=== PATIENT | male | born 1955 | race Caucasian/White ===

== ENCOUNTER 2019-09-21 07:49 | Outpatient (CLI) | payer OTHER, SELFPAY ==
--- NOTE | ~2019-09-21 | US_ITS ---
EXAMINATION: US aorta [facility] scr[facility] DATE: 09/21/2019 08:33 INDICATION: Family aortic aneurysm screening TECHNIQUE: Grayscale, color Doppler, and pulsed Doppler images of the aorta and common iliac arteries were obtained. COMPARISON: None. FINDINGS: The proximal aorta is 2.0 cm. The mid aorta measures 1.8 cm. The distal aorta measures 1.6 cm. The ri ght common iliac artery measures 1.0 cm. The left common iliac artery measures 1.2 cm. The visualized mid inferior vena cava is normal. IMPRESSION: 1. Normal caliber abdominal aorta. Reviewed, dictated and finalized at location A.
== END 2019-09-21 07:50 | disposition home or self-care (01) ==
LOC: ANHIMG 07:53
PROVIDERS: PCP Family Medicine; Visit Provider Family Medicine
DX: Z13.6 Encounter for screening for cardiovascular disorders (principal); Z87.891 Personal history of nicotine dependence
CPT/HCPCS: 76706

== ENCOUNTER 2023-01-02 14:14 | Emergency (ER) | payer OTHER, SELFPAY ==
--- NOTE | ~2023-01-02 | XR_ITS ---
EXAMINATION: XR foot RT min 3V DATE: 01/02/2023 14:57 INDICATION: Right toe pain. Third toe swelling. TECHNIQUE: 4 views of right foot were obtained. COMPARISON: Right foot radiograph 09/20/2005 FINDINGS: There is internal fixation of second metatarsal with dorsal plate and screws. There is inte rnal fixation of third metatarsal with dorsal plate and screws. Bone alignment is normal. There is a transverse fracture of head of fifth proximal phalanx with callus formation. There is mild osteoarthr itis of first and third metatarsophalangeal joints and some of the interphalangeal joints. There is m oderate osteoarthritis of third distal interphalangeal joint. IMPRESSION: 1. Healing transverse fracture of head of fifth proximal phalanx. 2. Polyarticular osteoarthritis. Reviewed, dictated and finalized at location A.
[2023-01-02 14:15] VITALS: BP 143/75; PULSE 84; RESP 18; TEMP 37.2; O2SAT 97
--- NOTE | 2023-01-02 15:59 | ED.EXTPRO ---
HPI - Extremity Problem General Chief complaint: Extremity Problem,Nontraumatic Stated complaint: swollen toe Time Seen by Provider: 01/02/23 14:32 History of Present Illness HPI Narrative: 67-year-old male presents to the emergency room for pain and swelling to his right third toe. Patient cannot recall any known injury or trauma. States he has injured the foot in the past that was over 40 years ago, requiring hardware. Related Data Home Medications Medication Instructions Recorded Confirmed allopurinol 100 mg tablet 200 mg PO DAILY 03/03/19 08/13/22 diltiazem HCl 60 mg tablet 60 mg PO BID 03/03/19 08/13/22 Allergies Allergy/AdvReac Type Severity Reaction Status Date / Time No Known Allergies Allergy Verified 08/13/22 16:07 Review of Systems Constitutional: Constitutional: Reports no additional constitutional complaints Cardiovascular: Cardiovascular: Reports no additional cardiovascular complaints Respiratory: Respiratory: Reports no additional respiratory complaints Musculoskeletal: Musculoskeletal: Reports as per HPI Integumentary/Breasts: Skin/Breast: Reports as per HPI Neurologic: Reports system reviewed and no additional complaints, except as documented [facility] Surgical History Surgical History History of elbow surgery Family History Family History Sibling Family history of diabetes mellitus in first degree relative Hypertension Father Family history of coronary artery disease Acute myocardial infarction Other Family history of malignant neoplasm Social History Social History Smoking packs per day: 3 Smoking cigarettes per day: 60.0 Years smoked: 48 Smoking pack-years: 144.00 Smoking status: Former smoker Tobacco type: cigarettes Second hand tobacco smoke exposure: Yes Smoking end date: 03/25/02 Alcohol intake: current Drinks per week: 6 Substance use: never Substance use type: does not use Living arrangements: with family Occupation/Education: occupation Gender identity (if verbalized by the patient): Male Exam Const: General: healthy appearing, no acute distress and alert HENMT: Head: normal to inspection Eyes: Conjunctivae: conjunctivae normal Pupils: Equal, round and reactive pupils present EOM: EOMs intact bilaterally Resp: Effort & Inspection: normal respiratory effort Auscultation: clear to auscultation bilaterally Cardio: Rate: regular rate Rhythm: regular rhythm Skin: Other: right 3rd toe: Erythema, STS and purulent drainage noted Extrem: Other: right third toe: +STS with tenderness on palpation Course Vital Signs Vital signs: Vital Signs Temperature 37.2 C 01/02/23 14:15 Pulse Rate 84 01/02/23 14:15 Respiratory Rate 18 01/02/23 14:15 Blood Pressure 143/75 H 01/02/23 14:15 Pulse Oximetry 97 01/02/23 14:15 Oxygen Delivery Room Air 01/02/23 14:15 Temperature 37.2 C 01/02/23 14:15 Pulse Rate 84 01/02/23 14:15 Respiratory Rate 18 01/02/23 14:15 Blood Pressure 143/75 H 01/02/23 14:15 Pulse Oximetry 97 01/02/23 14:15 Oxygen Delivery Room Air 01/02/23 14:15 Discharge Plan Discharge Clinical Impression: Cellulitis of toe, right Fracture of right toe Qualifiers: Encounter type: initial encounter Toe: lesser toe Fracture type: closed Fracture alignment: nondisplaced Patient Disposition: Home, Self-Care Condition: Stable Instructions: Antibiotic Form, Toe Fracture (ED), Cellulitis (ED) Prescriptions: New cephalexin 500 mg capsule 500 mg PO Q8H Qty: 21 0RF naproxen 500 mg tablet 500 mg PO BID Qty: 20 0RF No Action terbinafine HCl 250 mg tablet 250 mg PO DAILY Qty: 90 0RF sildenafil (pulm.hypertension) 20 mg tablet 20 mg PO TID Qty: 60 3RF Rx Instruction
[2023-01-02 16:23] VITALS: BP 146/87; PULSE 78; RESP 18; O2SAT 98
--- NOTE | 2023-01-16 19:27 | PC.NURSE ---
LATE ENTRY This note is being entered to document information to the patient's record. The following information was omitted on [01/02/23], by [Ekta Stahl RN]. A post op shoe was placed on this pt foot due to foot fracture.
== END 2023-01-02 16:24 | disposition home or self-care (01) ==
LOC: ANHED 16:06
PROVIDERS: Emergency Provider Nurse Practitioner Family; PCP Family Medicine
DX: L03.031 Cellulitis of right toe (principal); S92.514A Nondisplaced fracture of proximal phalanx of right lesser toe(s), initial encounter for closed fracture; Z87.891 Personal history of nicotine dependence; M19.071 Primary osteoarthritis, right ankle and foot; X58.XXXA Exposure to other specified factors, initial encounter
CPT/HCPCS: 73630; 87070; 87147; 87181; 87186; 87205; 99283; 99284

== ENCOUNTER 2023-08-09 13:35 | Outpatient (CLI) | payer OTHER, SELFPAY ==
--- NOTE | ~2023-08-09 | MR_ITS ---
EXAMINATION: MR lumbar spine wo/w con DATE: 08/09/2023 14:57 INDICATION: Low back pain. TECHNIQUE: Magnetic resonance imaging (MRI) of the lumbar spine was performed without and with 18 mL MultiHance intravenous contrast. COMPARISON: Lumbar spine MRI 12/27/2016 FINDINGS: There is 5 degrees levocurvature of lumbar spine. Vertebral body heights are normal. Interv ertebral disc heights are normal. The distal spinal cord signal intensity is normal. The conus medull kamini is at L1. The following disc levels are specifically discussed: L1-L2: The disc is bulging and has an annular fissure. There is severe right and moderate left facet joint osteoarthritis. There is mild right neural foraminal stenosis. There is mild central canal sten osis. L2-L3: The disc is bulging. There is severe bilateral facet joint osteoarthritis. There is mild bilat eral neural foraminal stenosis. There is no central canal stenosis. L3-L4: The disc is bulging and has an annular fissure. There is severe bilateral facet joint osteoart hritis. There is moderate right and mild left neural foraminal stenosis. There is mild central canal stenosis. There is severe stenosis of the right lateral recess and moderate stenosis of left lateral recess. L4-L5: The disc is bulging and has an annular fissure. There is severe bilateral facet joint osteoart hritis. There is moderate bilateral neural foraminal stenosis. There is moderate central canal stenos is. L5-S1: The disc is bulging. There is severe bilateral facet joint osteoarthritis. There is mild bilat eral neural foraminal stenosis. There is mild central canal stenosis. IMPRESSION: 1. Moderate lumbar spondylosis. Reviewed, dictated and finalized at location E.
--- NOTE | ~2023-08-09 | MR_ITS ---
EXAMINATION: MR hip RT wo/w con DATE: 08/09/2023 15:00 INDICATION: Right hip pain. TECHNIQUE: Magnetic resonance imaging (MRI) of the right hip was performed without and with 18 mL Mul tiHance intravenous contrast. COMPARISON: None FINDINGS: Bones/cartilage: Bone alignment is normal. There is a large distribution of osteonecrosis in right femoral head. There is severe right hip osteoarthritis with full-thickness cartilage loss and extensive edema-like signa l intensity involving the acetabulum and femoral head and neck. There are subchondral fractures of ri ght femoral head. There is moderate left hip osteoarthritis. Labrum: There are tears of the acetabular ashlyn bilaterally. Fluid: There is a large right hip joint effusion. There is mild bilateral trochanteric bursitis. Soft tissues: There is mild right iliopsoas tendinopathy. There is moderate tendinopathy of the hamstring origins b ilaterally. There is mild bilateral gluteus minimus tendinopathy and moderate bilateral gluteus mediu s tendinopathy. IMPRESSION: 1. 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 2. Severe right hip osteoarthritis and moderate left hip osteoarthritis. 3. Large right hip joint effusion. Reviewed, dictated and finalized at location E.
== END 2023-08-09 13:36 ==
LOC: MICIMG 13:37
DX: M87.851 Other osteonecrosis, right femur (principal); M16.0 Bilateral primary osteoarthritis of hip; M25.451 Effusion, right hip; M47.26 Other spondylosis with radiculopathy, lumbar region
CPT/HCPCS: 72158; 73723; A9577

== ENCOUNTER 2023-09-16 14:14 | Outpatient (CLI) | payer OTHER, SELFPAY ==
--- NOTE | ~2023-09-16 | XR_ITS ---
EXAMINATION: XR hand LT min 3V DATE: 09/16/2023 14:29 INDICATION: Pain in the left fingers. TECHNIQUE: 4 views of left hand were obtained. COMPARISON: None. FINDINGS: Bone alignment is normal. No fracture. There is moderate osteoarthritis of triscaphe joint, severe osteoarthritis of first carpometacarpal joint, and mild osteoarthritis of some of the metacar pophalangeal joints and interphalangeal joints. There is moderate osteoarthritis of third proximal an d distal interphalangeal joints. Fifth proximal interphalangeal joint demonstrates osteophytes, kirill nal erosions with sclerotic margins, relatively preserved joint space, and increased density in the s urrounding soft tissues with soft tissue swelling. IMPRESSION: 1. Severe arthritis of fifth proximal interphalangeal joint, which may be a combination of osteoarthr itis and gout. 2. Polyarticular osteoarthritis. Reviewed, dictated and finalized at location A. IMPRESSION: 1. Severe arthritis of fifth proximal interphalangeal joint, which may be a com bination of osteoarthritis and gout. 2. Polyarticular osteoarthritis.
== END 2023-09-16 14:15 ==
LOC: MICIMG 14:16
PROVIDERS: PCP Family Medicine; Visit Provider Physician Assistant
DX: M79.89 Other specified soft tissue disorders (principal); M19.042 Primary osteoarthritis, left hand
CPT/HCPCS: 73130

== ENCOUNTER 2023-11-09 17:07 | Emergency (ER) | payer OTHER, SELFPAY ==
[2023-11-09] VITALS (31 sets, daily range): BP systolic 96–150; BP diastolic 63–98; PULSE 77–101; RESP 12–24; TEMP 36.6; O2SAT 85–100
--- NOTE | ~2023-11-09 | XR_ITS ---
XR hip RT min 2V DATE: 11/09/2023 18:07 INDICATION: Postoperative reduction examination TECHNIQUE: AP and crosstable lateral views COMPARISON: Prereduction 11/09/2023 right hip views FINDINGS: There is reduction of the superior posterior lateral dislocation of the right femoral head prosthetic component of the right total hip arthroplasty. The acetabular femoral components are now a ppropriately anatomically aligned. IMPRESSION: Reduction of right hip femoral head prosthesis dislocation Reviewed, dictated and finalized at location J.
--- NOTE | ~2023-11-09 | XR_ITS ---
XR hip RT 2V w AP pelvis DATE: 11/09/2023 17:33 INDICATION: Dislocation TECHNIQUE: AP pelvis. AP and crosstable lateral views of right hip COMPARISON: None FINDINGS: There is superior posterolateral dislocation of the right femoral head prosthesis. The acet abular component remains in appropriate position. No fracture is evident. Normal alignment at the pubic symphysis and sacroiliac joints. The left hip appears intact. There is a prominent amount of fecal material in the rectum and colon. IMPRESSION: Superior posterolateral right femoral head prosthesis dislocation Reviewed, dictated and finalized at location J.
[2023-11-09] MEDS: KETOROLAC 15 MG/ML VIAL (*BKC) IV PUSH (17:42)
--- NOTE | 2023-11-09 17:44 | ED.LOWEXIN ---
HPI - Extremity Injury (Lower) General Chief Complaint: Extremity Injury, Lower <Leida Rosas PA-C - Last Filed: 11/09/23 19:46> Stated Complaint: ?Hip dislocation <ROSANNE Adan Last Filed: 11/09/23 19:46> Time Seen by Provider: 11/09/23 17:11 <Leida Rosas PA-C - Last Filed: 11/09/23 19:46> Source: patient <ROSANNE Adan Last Filed: 11/09/23 19:46> Mode of arrival: EMS <ROSANNE Adan Last Filed: 11/09/23 19:46> Limitations: no limitations <ROSANNE dAan Last Filed: 11/09/23 19:46> History of Present Illness HPI Narrative: This is a 68 year old male that presents to the ER for right hip pain after stepping down while getting out of his truck. Reports recent right hip replacement at [facility] with Dr. Lopez. He is unable to ambulate. Denies numbness. <ROSANNE Adan Last Filed: 11/09/23 19:46> Related Data Home Medications: Home Medications Medication Instructions Recorded Confirmed diltiazem HCl 60 mg tablet 60 mg PO BID 03/03/19 09/12/23 <Leida Rosas PA-C - Last Filed: 11/09/23 19:46> Allergies/Adverse Reactions: Allergies Allergy/AdvReac Type Severity Reaction Status Date / Time No Known Allergies Allergy Verified 09/12/23 15:22 <ROSANNE Adan Last Filed: 11/09/23 19:46> Review of Systems Review of Systems: CONSTITUTIONAL: Denies fever MUSCULOSKELETAL: Reports joint pain, and myalgia. NEUROLOGIC: Denies numbness <ROSANNE Adan Last Filed: 11/09/23 19:46> All systems reviewed & are unremarkable except as noted in HPI and below <ROSANNE Adan Last Filed: 11/09/23 19:46> [facility] Past Medical History Medical History: Medical History (Updated 11/09/23 @ 19:41 by Leida Rosas PA-C) Essential (primary) hypertension Gout, unspecified HLD (hyperlipidemia) Paroxysmal A-fib <Leida Rosas PA-C - Last Filed: 11/09/23 19:46> Surgical History Surgical History: Surgical History History of elbow surgery Hx of decompressive lumbar laminectomy L3/L4 <Leida Rosas PA-C - Last Filed: 11/09/23 19:46> Family History Family History: Family History Sibling Family history of diabetes mellitus in first degree relative Hypertension Father Family history of coronary artery disease Acute myocardial infarction Other Family history of malignant neoplasm <Leida Rosas PA-C - Last Filed: 11/09/23 19:46> Social History Social History: Social History Smoking packs per day: 3 Smoking cigarettes per day: 60.0 Years smoked: 48 Smoking pack-years: 144.00 Smoking status: Former smoker Tobacco type: cigarettes Second hand tobacco smoke exposure: Yes Smoking end date: 03/25/02 Alcohol intake: current Drinks per week: 6 Substance use: never Substance use type: does not use Living arrangements: with family Occupation/Education: occupation Gender identity (if verbalized by the patient): Male <Leida Rosas PA-C - Last Filed: 11/09/23 19:46> Exam Narrative: GENERAL: Well-appearing, well-nourished, and in no acute distress. HEAD: Normocephalic, atraumatic. EYES: EOMI. CHEST: No respiratory distress HEART: Regular rate EXTREMITIES: No edema. Right leg is shortened. Normal DP pulse. Normal sensation. Unable to flex at the hip SKIN: Warm, dry, no rash. NEURO: No focal deficits. Alert and oriented x3. PSYCH: Normal mood and affect <Leida Rosas PA-C - Last Filed: 11/09/23 19:46> Course Course Emergency Course: Patient updated, agrees with plan of care <Leida Rosas PA-C - Last Filed: 11/09/23 19:46> SECOND BALLER/PA Physician Supervision For this patient encounter, I reviewed the SECOND BALLER or PA documentation, treatment plan, and
[2023-11-09] MEDS: PROPOFOL IV EMULSION 200 MG/20 ML VIAL 60 MG IV PUSH ×2 (17:53→17:55)
[2023-11-09] MEDS: PROPOFOL IV EMULSION 200 MG/20 ML VIAL 40 MG IV PUSH (17:54)
--- NOTE | 2023-11-09 18:21 | PC.NURSE ---
Procedure start time and time out at 0332.
== END 2023-11-09 20:08 | disposition home or self-care (01) ==
PROVIDERS: Emergency Provider Physician Assistant; PCP Family Medicine
DX: S73.004A Unspecified dislocation of right hip, initial encounter (principal); I10 Essential (primary) hypertension; I48.0 Paroxysmal atrial fibrillation; Z87.891 Personal history of nicotine dependence; X58.XXXA Exposure to other specified factors, initial encounter
CPT/HCPCS: 27265; 73502; 96374; 99285; J1885; J2704

== ENCOUNTER 2023-12-02 10:32 | Emergency (ER) | payer OTHER, SELFPAY ==
[2023-12-02] VITALS (16 sets, daily range): BP systolic 110–163; BP diastolic 67–96; PULSE 71–90; RESP 11–20; TEMP 36.4–36.7; O2SAT 91–100
--- NOTE | ~2023-12-02 | XR_ITS ---
XR hip RT 1V Ordering provider: Leida Rosas PA-C History: . post-reduction, RIGHT HIP . Comparison: December 12, 2023 FINDINGS: BONES: No acute fracture or dislocation. HIP JOINT SPACES: Reduction of the dislocated right hip arthroplasty noted SACROILIAC JOINT SPACES/LUMBAR SPINE: The sacroiliac joint spaces are normal. Mild degenerative luong es of the visualized lower lumbar spine. PUBIC SYMPHYSIS: Normal. SOFT TISSUES: Normal. IMPRESSION: No acute osseous abnormality pelvis. Status post reduction of the right hip arthroplasty. Reviewed, dictated and finalized at location A.
--- NOTE | ~2023-12-02 | XR_ITS ---
EXAMINATION: XR hip RT 2V w AP pelvis DATE: 12/02/2023 11:19 INDICATION: Right hip dislocation. TECHNIQUE: An anteroposterior view of the pelvis and 2 views of right hip were obtained. COMPARISON: Right hip radiographs 11/09/2023 FINDINGS: There is a total right hip arthroplasty. There is proximal and lateral dislocation of the f emoral component with respect to the acetabular cup. No periprosthetic lucency to suggest loosening o r infection. There is mild left hip osteoarthritis. There is moderate lumbar spondylosis. IMPRESSION: 1. Dislocated total right hip arthroplasty. 2. Mild left hip osteoarthritis. Reviewed, dictated and finalized at location A.
--- NOTE | 2023-12-02 10:41 | PC.NURSE ---
Patient has shortening to right leg. good pulses
--- NOTE | 2023-12-02 11:41 | ED.LOWEXIN ---
HPI - Extremity Injury (Lower) General Chief Complaint: Extremity Injury, Lower <Leida Rosas PA-C - Last Filed: 12/02/23 12:37> Stated Complaint: right hip dislocated <ROSANNE Adan Last Filed: 12/02/23 12:37> Time Seen by Provider: 12/02/23 11:12 <Leida Rosas PA-C - Last Filed: 12/02/23 12:37> Source: patient <ROSANNE Adan Last Filed: 12/02/23 12:37> Mode of arrival: EMS <ROSANNE Adan Last Filed: 12/02/23 12:37> Limitations: no limitations <ROSANNE Adan Last Filed: 12/02/23 12:37> History of Present Illness HPI Narrative: This is a 68-year-old male that presents to the emergency department for right hip pain. Reports he had bent forward and the shower. Dunlap a pop. Has recently had a hip replacement as had a dislocation since. Reports his pain feels similar to his previous dislocation. Denies numbness. <Leida Rosas PA-C - Last Filed: 12/02/23 12:37> Related Data Home Medications: Home Medications Medication Instructions Recorded Confirmed diltiazem HCl 60 mg tablet 60 mg PO BID 03/03/19 09/12/23 <Leida Rosas PA-C - Last Filed: 12/02/23 12:37> Allergies/Adverse Reactions: Allergies Allergy/AdvReac Type Severity Reaction Status Date / Time No Known Allergies Allergy Verified 12/02/23 10:40 <ROSANNE Adan Last Filed: 12/02/23 12:37> Review of Systems Review of Systems: CONSTITUTIONAL: Denies fever MUSCULOSKELETAL: Reports joint pain, and myalgia. NEUROLOGIC: Denies numbness, or weakness. <ROSANNE Adan Last Filed: 12/02/23 12:37> All systems reviewed & are unremarkable except as noted in HPI and below <ROSANNE Adan Last Filed: 12/02/23 12:37> [facility] Past Medical History Medical History: Medical History (Updated 12/02/23 @ 12:37 by Leida Rosas PA-C) Essential (primary) hypertension Gout, unspecified HLD (hyperlipidemia) Paroxysmal A-fib <Leida Rosas PA-C - Last Filed: 12/02/23 12:37> Surgical History Surgical History: Surgical History (Updated 11/13/23 @ 07:43 by Darshan Woody MD) History of elbow surgery History of right hip replacement Hx of decompressive lumbar laminectomy L3/L4 <Leida Rosas PA-C - Last Filed: 12/02/23 12:37> Family History Family History: Family History Sibling Family history of diabetes mellitus in first degree relative Hypertension Father Family history of coronary artery disease Acute myocardial infarction Other Family history of malignant neoplasm <Leida Rosas PA-C - Last Filed: 12/02/23 12:37> Social History Social History: Social History Smoking packs per day: 3 Smoking cigarettes per day: 60.0 Years smoked: 48 Smoking pack-years: 144.00 Smoking status: Former smoker Tobacco type: cigarettes Second hand tobacco smoke exposure: Yes Smoking end date: 03/25/02 Alcohol intake: current Drinks per week: 6 Substance use: never Substance use type: does not use Living arrangements: with family Occupation/Education: occupation Gender identity (if verbalized by the patient): Male <Leida Rosas PA-C - Last Filed: 12/02/23 12:37> Exam Narrative: GENERAL: Well-appearing, well-nourished, and in no acute distress. HEAD: Normocephalic, atraumatic. EYES: EOMI. CHEST: Clear to auscultation. No respiratory distress. No wheezes rales or rhonchi HEART: Regular rate and rhythm. No murmur heard. Normal peripheral pulses. EXTREMITIES: Right leg is shortened. Normal DP pulse. Normal sensation SKIN: Warm, dry, no rash. NEURO: No focal deficits. Alert and oriented x3. PSYCH: Normal mood and affect <Leida Rosas PA-C - Last Filed: 12/02/23 12:37> Course RETURNED ITEM CLERK/PA Physician Supervision This visit was performed by both the p
--- NOTE | 2023-12-02 11:57 | PC.NURSE ---
room set up for moderate sedation
--- NOTE | 2023-12-02 12:10 | PC.NURSE ---
80mg propofol given by Dr Venegas
--- NOTE | 2023-12-02 12:12 | PC.NURSE ---
20mg propofol given by Dr Venegas
--- NOTE | 2023-12-02 12:13 | PC.NURSE ---
40mg propofol given by Dr Venegas
--- NOTE | 2023-12-02 12:14 | PC.NURSE ---
40mg propofol given by Dr Venegas
--- NOTE | 2023-12-02 12:18 | PC.NURSE ---
hip back in place at 1217. xray ordered by provider for confirmation
[2023-12-02] MEDS: SODIUM CHLORIDE 0.9% IV 1,000 ML 1000 ML (12:19)
[2023-12-02] MEDS: PROPOFOL IV EMULSION 200 MG/20 ML VIAL 100 MG IV PUSH (12:19)
== END 2023-12-02 13:43 | disposition home or self-care (01) ==
PROVIDERS: Emergency Provider Physician Assistant; PCP Family Medicine
DX: S73.004A Unspecified dislocation of right hip, initial encounter (principal); I10 Essential (primary) hypertension; E78.5 Hyperlipidemia, unspecified; I48.91 Unspecified atrial fibrillation; X58.XXXA Exposure to other specified factors, initial encounter
CPT/HCPCS: 27265; 73501; 73502; 99285; J2704; J7030